=== PATIENT | female | born 1945 | race Caucasian/White ===

== ENCOUNTER → 2016-07-30 | Outpatient (CLI) | payer MEDICARE, BC ==
[~2016-07-30] MED LIST: ASPI81 PO; LEVE500 PO
--- NOTE | 2016-08-01 09:58 | RSPPFT ---
DATE OF PROCEDURE: 07/30/16 COMMENTS: Spirometry shows FVC of 3.2 at 104% of predicted, FEV1 of 2.3 at 102%, FEV1/FVC ratio is normal. Flow is decreased at FEF 50, FEF 75. There is no response after bronchodilator treatment. Lung volumes show residual volume is normal. TLC is normal. Diffusion capacity is normal. Flow volume loop indicates small airways obstructive lung disease. IMPRESSION: 1. Mild small airways obstructive lung disease. 2. No response after bronchodilator treatment. 3. Normal lung volumes. 4. Normal diffusion capacity.
== END ==
LOC: HRSP 12:29
PROVIDERS: ATTEND Specialist
DX: R05 Cough (principal)
CPT/HCPCS: 94060; 94726; 94729